=== PATIENT | female | born 1995 | race Caucasian/White ===

== ENCOUNTER 2018-10-06 00:41 | Outpatient (CLI) | payer OTHER, MEDICAID, SELFPAY | END 2018-10-06 01:01 | PROVIDERS: PCP Nurse Practitioner; Visit Provider Family Medicine | DX: O34.219 Maternal care for unspecified type scar from previous cesarean delivery (principal); Z01.818 Encounter for other preprocedural examination; Z01.812 Encounter for preprocedural laboratory examination | CPT/HCPCS: 36415; 86850; 86900; 86901 ==

== ENCOUNTER 2018-10-09 05:59 | Inpatient (IN) | payer OTHER, MEDICAID, SELFPAY ==
[2018-10-09 06:29] VITALS: BP 135/95; PULSE 90; RESP 16; TEMP 36.4; O2SAT 100
[2018-10-09 06:38] VITALS: BP 135/95; PULSE 90; RESP 16; TEMP 36.4; O2SAT 100
[2018-10-09] MEDS: Lactated Ringers 1,000 ML 150 ML IV ×2 (06:53→07:41)
--- NOTE | 2018-10-09 07:30 | W.PM.HP.N ---
History of Present Illness 22yo at 39.4w with HB- Rh+ RI presenting for rLTCS. First section failure to descend, prefered but short interval of pregnancies. Uncomplicated with no concerns. No significant past medical history. She is on no medications other than vitamins. Only potential risk factor is maternal BMI over 30. Has tolerated anesthesia without issue previously. Risks and benefits reviewed including bleeding, infection, damage to internal organs or damage to baby. She has signed consent and all questions answered. PFSH Social History Smoking/Tobacco Use Status: Never Drug use: Never Meds Home Medications Medication Instructions Recorded Confirmed Type PNV cmb#95-ferrous fumarate-FA 1 tab PO DAILY 10/03/18 10/09/18 History [] Allergies Allergy/AdvReac Type Severity Reaction Status Date / Time No Known Allergies Allergy Verified 10/09/18 06:28 Results Last Vital Signs Temp 36.4 C L 10/09/18 06:38 Pulse 90 10/09/18 06:38 Resp 16 10/09/18 06:38 BP 135/95 H 10/09/18 06:38 Pulse Ox 100 10/09/18 06:38
[2018-10-09] MEDS: ceFAZolin 2 GM/50 ML BAG IVPB (07:50)
[2018-10-09] MEDS: Bupivacaine 0.5% Pres-Free 30 ML VIAL (08:01)
--- NOTE | 2018-10-09 09:05 | W.PM.OP ---
Operative Note DATE OF PROCEDURE: 10/09/18 PRE-OP DIAGNOSIS: repeat low transverse c/section POST-OP DIAGNOSIS: same PROCEDURE: Extensive conversation prior to procedure with Cassie and Mireille regarding their expeience with prior section regarding pain control, activity, recovery. Also discussed their plans to bottle feed, work schedules, home support. Specific concerns re wound integrity, timing of post op po intake, activity, pain control all discussed. Procedure itself reviewed with sequence of steps and discussion re tiny usual risks of bleeding, infection, scarring, damage to internal organs. They wished to proceed - and freely signed the pre op consent. Mireille walked to the OR. Anes placed spinal with no difficulty, skin prep performed, usual sterile drapes placed, ~20 cc .5% marcaine injected in subcut planes - adequate anesthesia confirmed. Sharp incision carried through skin and through subcut fat to fascia. Fascial christal carried to lateral corners with readily apparent rectus muscles - kobe clamps used to separate fascia from rectus. Muscles retrqacted laterally and space for fetus confirmed. Peritoneum entered bluntly with care to protect bladder. Bladder blade placed and bladder flap created. Sharp low transverse uterine incision made - completed bilaterally digitally, clear AF noted. vertex readily elevated and with fundal pressure head readily delivered. With gentle traction and further fundal pressure, shoulders readily delivered. Spont resp effort, mouth and nose suctioned for clear AF. Delayed cord clamp - cord cut - 3Vessels noted - baby passed to awaiting FP. Cord bloods obtained, placents delivered manually, uterus exteriorized, IV pit started - tone good. Cervix probed, no uterine incision extensions noted. uterine incision closed with 2 layer running locking 0 vicryl. Hemostasis was good. Uterus replaced in abdomen - bilat gutter irrigation done - hemostasis adequacy confirmed visually Peritoneum closed with 2-0 vicryl. Subfascial layers had complete hemostasis. Fascia was closed with running 0 vicryl starting in apices and overlapping in midline. A single extra interrupted 0 vicryl suture was used to ensure complete hemostasis. Subcut adipose layer had good hemostasis post minimal use of cautery. space was closed with running 2-0 vicryl. Cutaneous closure done with running 4-0 vicryl - again complete hemostasis. Dressing applied. 600 cc ebl Mireille awake throughout the procedure - tolerated well to ob floor Toradol 30 iv given at end of procedure. ANESTHESIA: spinal ESTIMATED BLOOD LOSS: 600 PATHOLOGY: none sent COMPLICATIONS: None Patient was transported to: floor Patient's condition: stable
[2018-10-09] MEDS: Lactated Ringers 1,000 ML 120 ML IV (12:11)
[2018-10-09] MEDS: Acetaminophen 325 MG TAB 650 MG PO (13:17)
[2018-10-09] MEDS: Ketorolac 30 MG/ML VIAL IVP (19:59)
[2018-10-09] MEDS: Docusate Sodium 100 MG CAP PO (20:34)
[2018-10-10] MEDS: Ketorolac 30 MG/ML VIAL IVP ×2 (02:00→08:45)
[2018-10-10] MEDS: Normal Saline Flush 10 ML SYR IV ×2 (02:01→08:52)
[2018-10-10 07:06] LABS: HCT 25.6 % (36.0-46.0); Mean Corp. HGB Concentration 31.3 g/dL (32.0-36.0); Mean Corpuscular Hemoglobin 28.2 pg (27.0-33.0); Mean Corpuscular Volume 90.1 fL (80-95); Mean Platelet Volume 10.2 fL (8.0-11.0); Platelet Count 222 x1000/uL (130-400); RBC 2.84 m/cumm (4.00-5.20); RBC Distribution Width 14.3 % (11.7-14.6); White Blood Cell Count 10.19 k/cumm (4.4-10.8)
[2018-10-10] MEDS: Docusate Sodium 100 MG CAP PO (13:48)
[2018-10-10] MEDS: Ibuprofen 600 MG TAB PO (19:46)
== END 2018-10-11 09:40 | disposition home or self-care (01) | DRG 788 ==
LOC: PDS 06:01 → OBS 09:41
PROVIDERS: Admitting Provider Family Medicine; PCP Nurse Practitioner; Visit Provider Family Medicine
PROC: 10D00Z1 Extraction of Products of Conception, Low, Open Approach (ICD-10-PCS; CPT 59514; principal; 2018-10-09 07:30)
DX: O34.211 Maternal care for low transverse scar from previous cesarean delivery (principal); Z37.0 Single live birth; Z3A.39 39 weeks gestation of pregnancy; O12.05 Gestational edema, complicating the puerperium
CPT/HCPCS: 59514; 36415; 85027; NC; J0690; J1885; J2370; J2405; J2590; J3490